=== PATIENT | male | born 1955 | race Caucasian/White ===

== ENCOUNTER 2021-01-13 15:05 | Outpatient (REF) | payer BC, SELFPAY ==
[2021-01-13 22:14] LABS: ALT 33 U/L (16-63); AST 20 U/L (15-37); Albumin 4.2 g/dL (3.4-5.0); Alkaline Phosphatase 70 U/L (46-116); Anion Gap 10.9 mmol/L (3-11); BUN 21 mg/dL (7-18); Bilirubin, Total 0.6 mg/dL (0.2-1.0); CO2 26.1 mmol/L (21.0-32.0); CREATININE 0.9 mg/dL (0.70-1.30); Calcium 8.8 mg/dL (8.5-10.1); Calculated LDL 140 mg/dL (<100); Chloride 103 mmol/L (98-107); Cholesterol 204 mg/dL (<200); Glucose 79 mg/dL (74-106); HDL Cholesterol 40 mg/dL (40-60); Potassium 3.8 mmol/L (3.5-5.1); Sodium 140 mmol/L (136-145); Total Protein 7.6 g/dL (6.4-8.2); Triglyceride 120 mg/dL (<150)
== END 2021-01-13 15:06 | disposition home or self-care (01) ==
LOC: NCHCN 15:05
PROVIDERS: PCP Family Medicine; Visit Provider Family Medicine
DX: Z00.00 Encounter for general adult medical examination without abnormal findings (principal); R03.0 Elevated blood-pressure reading, without diagnosis of hypertension; Z13.1 Encounter for screening for diabetes mellitus; Z13.220 Encounter for screening for lipoid disorders
CPT/HCPCS: 80053; 80061; 83036

== ENCOUNTER → 2023-11-23 08:12 | Outpatient (BNVA) | payer MEDICARE, SELFPAY | PROVIDERS: PCP Family Medicine; Referring Provider Family Medicine; Visit Provider Physical Therapy Assistant | DX: Z12.11 Encounter for screening for malignant neoplasm of colon (principal); Z86.010 Personal history of colon polyps ==

== ENCOUNTER 2024-01-26 06:23 | Day surgery (SDC) | payer MEDICARE, SELFPAY ==
--- NOTE | 2024-01-25 16:10 | PDOC.DSDIS_ITS ---
Date of service: 01/26/24 Time of Service: 08:45 Discharge Plan Disposition Patient Disposition: Home Condition: Good Discharge Details Attending Provider: Lola Berumen Primary Care Provider: Karmen Giraldo Home Meds and New Rx's Prescriptions: No Action bisacodyl [Dulcolax (bisacodyl)] 5 mg tablet,delayed release (DR/EC) 5 mg PO ONCE Qty: 4 0RF Rx Instructions: Take per colonoscopy instructions provided by ordering providers office polyethylene glycol 3350 17 gram/dose powder 17 g PO ONCE Qty: 238 0RF Rx Instructions: Take per colonoscopy instructions provided by ordering providers office Discharge Instructions Additional Instructions: DSU Colonoscopy Post- Op Instructions Instructions for Everyone who is given Anesthesia: For your safety, please do the following for the next twenty-four (24) hours: *Do Not operate a motor vehicle (car, truck, motorcycle, etc.) *Do Not drink alcoholic beverages or use any recreational drugs for the first 24 hours or while taking pain medications. The medications in your body may have a reaction that can be dangerous. *Do Not make any important decisions or sign any important papers. Findings: Multiple polyps Follow up: My office will send a letter in 2 to 3 weeks time with the results of the polyps and when we want to repeat the colonoscopy. Most likely 3 to 5 years time. You have severe sleep apnea and need to get a sleep study done 1. No lifting over 20 pounds or strenuous activity for the first 24 hours after your procedure. After 24 hours there are no restrictions on your activity but you may feel fatigued for a few days. 2. After you arrive home you may have a light meal and return to your normal diet as you can tolerate it without feeling sick to your stomach. 3. You may have a bloated, gaseous feeling in your belly (abdomen) after a colonoscopy. Passing gas and belching will help. Walking or lying down on your left side with your knees flexed may relieve the discomfort. Call the office at [phone] (Office) or [phone] (Hospital) right away if you notice any of the following: a.Vomiting of blood or ?coffee ground stools?. b.Rectal bleeding 1Tbsp, blood clots or continuous bleeding. c.Severe belly (abdominal) pain. d.A hard distended belly (abdomen) and an inability to pass gas. 4. Please don?t expect to have a normal BM (bowel movement) for 2-3 days after your procedure. 5. If there are questions regarding the findings of your procedure, please contact your doctor 6. If you are unable to contact your doctor with a problem, contact the hospital at [phone]. 7. Continue all your regular medications unless directed otherwise. I understand the above instructions and have no questions. Signature of Patient or Adult Escort Name of Responsible Adult Escort Signature of Nurse Date/Time Activity:: see above Diet:: see above Discharge Orders Discharge Orders: Discharge Order (Routine); Ordered 01/26/24 Ordered By: Lola Berumen DS: Diagnosis Discharge Diagnosis (1) Tubular adenoma of colon: Asessment and Plan: The patient is seen and examined after their colonoscopy.? The patient has been able to pass gas.? They are not having abdominal pain.? They have been able to tolerate liquids and a snack.? They do not have any nausea or vomiting.? They are not having any chest pain or shortness of breath.??? They are not having any rectal bleeding. Their vital signs have been stable-see nursing notes. We discussed findings during their colonoscopy, and any biopsies that were done/polyps that were removed. The patient will be sent a letter with any biopsy results, and when to repeat the colonoscopy.-see discharge instructions. Patient was given explicit instructions to follow-up regarding colonoscopy-refer to discharge instructions.? We reviewed resumption of medications. Patient verbalized understanding and discharged in stable and satisfactory condition- See nursing notes.
--- NOTE | 2024-01-25 16:11 | W.PM.HP.N ---
Date of service: 01/26/24 Time of Service: 07:29 Assessment and Plan Assessment and plan (1) Tubular adenoma of colon: Assessment and plan: Plan: Colonoscopy w/ general & natural airway. The?patient will be scheduled by my office. The pt understands that they need to do a bowel prep and the importance of hydration during this.? The patient understands there is a theoretical risk of renal failure.? For healthy patients we use Gatorade/Miralax Prep.? ?For anyone with renal concerns- GoLytely will be used. Plavix and coumadin will need to be held except in unusual circumstances. ? Patients in A. Fib do not need to be bridged with Lovenox or on CVA prophylaxis.? A baby ASA can be continued but full dose ASA needs to be stopped for 10 days prior to the procedure. .? Informed consent is obtained for the procedural (explained in simple layman's terms that?the pt and/or family could understand) explaining risks vs benefits and alternatives to the procedure and consequences if we do not do the procedure and need/rational for the procedure. Risks include but are not limited to: bleeding, infection, perforation of colon.? This would necessitate emergency surgery to repair the damage w/ possible ostomy; and other associated complications w/ the required surgery. ? Also complications of anesthesia including aspiration, NE/CVA/, inability to complete the procedure. I discussed with the?patient would they could expect during the procedure, post procedure and recovery time and risks.? The patient understands that they need to have a ride home after the procedure.? The patient was given all this information in writing and expressed understanding. If there are any questions or concerns please feel free to contact our office.? Generally Colonoscopy does not require antibiotics prophylaxis, History of Present Illness Narrative: Patient is here today for colonoscopy for adenomatous polyp.??? They completed a bowel prep with just a clear yellow residual effluent.? They not having any chest pain or shortness of breath, currently.? They are not experiencing any fever or chills.? They deny any productive cough or upper respiratory tract infection signs or symptoms.? They are not having abdominal pain, or nausea and vomiting.? They have not had any changes in medications, past medical history or past surgical history since previously being seen in the office. They have not had any accidents or have been in the ER since the clinic pre-operative evaluation. ??I reviewed the procedure with the patient today, including risks and benefits of the procedure, and what they could expect at home for recovery.? All questions are answered to the patient?s satisfaction today, and they are stable to proceed with the proposed procedure. Clinic visit Assessment & Plan (1) Encounter for screening colonoscopy: The patient is here for Colonoscopy pre-op. His last screening was in 2017 , which was remarkable for tubular adenomatous polyp. He denies a family history of colon cancer. He has not had any bowel habit changes. -Discussed colonoscopy bowel prep as well as the procedure. Discussed possible complications of the procedure to include bleeding, pain, perforation, missed small lesion/polyp, sore throat, aspiration and adverse reaction to the medications. Questions were answered to patient?s satisfaction. No guarantees were implied or given. Anesthesia: general (without airway) Previous surgical intolerances: None Previous surgical complications: None Pulmonary risk factors: None PFT's: None Planned procedure: Yes Sleep apnea risks: No Can climb one flight of stairs (12-13 steps) in less than 30 seconds without stopping and without symptoms: Yes The surgery proposed for this patient is: Low risk Active cardiac conditions: None ECHO: None Stress Test: None Active risk factors: None ASA (acetylsalicylic acid):No Beta blockers: No Anti-coagulation: N/A Medications to be held: N/A PSHx hernia anesthesia- no problems P// Colonoscopy under sedation New HPI 67 y/o male with history of colonic polyps presents for colonoscopy screening pre-op. His last screening was in 2017 , which was remarkable for tubular adenomatous polyp. He denies a family history of colon cancer. He denies any changes in bowel habits including bloody or black tarry stools, abdominal pain, diarrhea or constipation. He denies constitutional symptoms. He denies chest pain, palpitations, dyspnea or dyspnea with exertion. He denies prior history or family history of adverse reactions or complications with anesthesia. The patient denies any history of stroke, NE, seizures, bleeding or clotting disorders. He denies having any implanted metal in his body. Review of Systems All systems reviewed & are unremarkable except as noted in HPI and below PFSH Medical History Tubular adenoma of colon Surgical History Repair of inguinal hernia RIGHT INGUINAL Colonoscopy - [facility] (07/28/17) Family History Father Lung cancer Mother , AFTER A FALL CAUSED BY BRAIN ISSUE No problems noted. Social History Smoking/Tobacco Use Status: Never Second Hand Exposure: No Smoking risk assessment performed?: Yes Alcohol Intake: never Drug use: Never Substance use type: does not use Housing: house Communication Needs: None Do you feel safe at home: Yes Do you feel safe in your relationship?: Yes Meds Allergies and Home Medications Allergies Allergy/AdvReac Type Severity Reaction Status Date / Time No Known Allergies Allergy Verified 01/26/24 06:32 Home Medications Medication Instructions Recorded Confirmed Type bisacodyl 5 mg tablet,delayed 5 mg PO ONCE #4 tabs 11/23/23 01/26/24 Rx release (Dulcolax (bisacodyl)) polyethylene glycol 3350 17 17 g PO ONCE #238 grams 11/23/23 01/26/24 Rx gram/dose oral powder Exam Narrative Exam Narrative: PHYSICAL EXAM GENERAL APPEARANCE: Alert, healthy appearance, oriented, x 3,? in no acute distress HYDRATION: Well hydrated HEAD, EYES, EARS, NECK, THROAT: Head is normocephalic, pupils equal, round, reactive to light and accommodation, ocular movement intact, sclera clear and no jaundice. ?Dentition intact. LUNGS: normal respiration/normal chest excursion. ?Clear to auscultation bilaterally. ?No wheeze. ?HEART: Regular rate and rhythm. no murmurs ABDOMEN: soft and non-tender to palpation.? Normal bowel sounds.? Anemia profile No Data to Display Basic Metabolic Sodium 140 mmol/L (136-145) 01/13/21 Potassium 3.8 mmol/L (3.5-5.1) 01/13/21 Chloride 103 mmol/L (98-107) 01/13/21 Carbon Dioxide 26.1 mmol/L (21.0-32.0) 01/13/21 BUN 21 mg/dL (7-18) H 01/13/21 Creatinine 0.9 mg/dL (0.70-1.30) 01/13/21 Estimated GFR/1.73 m2 >= 60.00 (mL/min/1.73m2) 01/13/21 Glucose 79 mg/dL (74-106) 01/13/21 CBC No Data to Display Comprehensive Metabolic Panel Sodium 140 mmol/L (136-145) 01/13/21 12:40 Potassium 3.8 mmol/L (3.5-5.1) 01/13/21 12:40 Chloride 103 mmol/L (98-107) 01/13/21 12:40 Carbon Dioxide 26.1 mmol/L (21.0-32.0) 01/13/21 12:40 BUN 21 mg/dL (7-18) H 01/13/21 12:40 Creatinine 0.9 mg/dL (0.70-1.30) 01/13/21 12:40 Estimated GFR/1.73 m2 >= 60.00 (mL/min/1.73m2) 01/13/21 12:40 Glucose 79 mg/dL (74-106) 01/13/21 12:40 Calcium 8.8 mg/dL (8.5-10.1) 01/13/21 12:40 Total Bilirubin 0.6 mg/dL (0.2-1.0) 01/13/21 12:40 ALT 33 U/L (16-63) 01/13/21 12:40 AST 20 U/L (15-37) 01/13/21 12:40 Alkaline Phosphatase 70 U/L (46-116) 01/13/21 12:40 Total Protein 7.6 g/dL (6.4-8.2) 01/13/21 12:40 Albumin 4.2 g/dL (3.4-5.0) 01/13/21 12:40 Diabetes results Hemoglobin A1c 5.0 % (<5.7) 01/13/21 Glucose 79 mg/dL (74-106) 01/13/21 Total Cholesterol 204 mg/dL (<200) H 01/13/21 LDL Cholesterol, Calc 140 mg/dL (<100) H 01/13/21 LDL Cholesterol Direct 145 mg/dL (<100) H 11/23/17 HDL Cholesterol 40 mg/dL (40-60) 01/13/21 Triglycerides 120 mg/dL (<150) 01/13/21 BUN 21 mg/dL (7-18) H 01/13/21 Creatinine 0.9 mg/dL (0.70-1.30) 01/13/21 Estimated GFR/1.73 m2 >= 60.00 (mL/min/1.73m2) 01/13/21 Sodium 140 mmol/L (136-145) 01/13/21 Potassium 3.8 mmol/L (3.5-5.1) 01/13/21 Chloride 103 mmol/L (98-107) 01/13/21 Carbon Dioxide 26.1 mmol/L (21.0-32.0) 01/13/21 Calcium 8.8 mg/dL (8.5-10.1) 01/13/21 AST 20 U/L (15-37) 01/13/21 ALT 33 U/L (16-63) 01/13/21 Total Protein 7.6 g/dL (6.4-8.2) 01/13/21 Albumin 4.2 g/dL (3.4-5.0) 01/13/21 Lipid profile Total Cholesterol 204 mg/dL (<200) H 01/13/21 HDL Cholesterol 40 mg/dL (40-60) 01/13/21 LDL Cholesterol, Calc 140 mg/dL (<100) H 01/13/21 LDL Cholesterol Direct 145 mg/dL (<100) H 11/23/17 Triglycerides 120 mg/dL (<150) 01/13/21 Stool tests (SJP) No Data to Display Time Spent Time spent with Patient: <40 minutes Time was spent: preparing to see the patient(eg.review tests), obtaining and/or reviewing separately otained hiistory, ordering medications,tests, procedures, referring, communicating with other health housekeeper child care, indepentently interpreting results, counseling the patient and care coordination
--- NOTE | 2024-01-25 19:13 | W.COLOREPORT ---
Date of service: 01/26/24 Time of Service: 07:35 Colonoscopy Report Date of procedure: 01/26/24 Pre-op diagnosis general: adenomtous polyps Post-op diagnosis procedure note: same Surgeon: Lola Berumen Anesthesia Type: General:No Airway Estimated blood loss (mL): 3 Pathology: other Complications: None Disposition: same day Prep: Miralax/Dulcolax Retraction Time: 30 Procedure Description: After informed consent was obtained the patient was taken to the procedure room and placed in a left decubitous position. Monitors were applied and a time out was done. The patients name, date of , procedure, allergies to medications and metal in their body was reviewed. The patient was then sedated. Once sedated and comfortable a rectal exam was done. External exam: External hemorrhoid at 6 o'clock position internal exam revealed a normal sphincter tone and no palpable masses. The prostate is enlarged. The scope was then introduced and retrofelexed. No internal hemorrhoids were identified. The scope was then advanced to the cecum without difficulty. The TI and appendiceal orifice were identified. The scope was then slowly retracted over 30 minutes back into the rectum. Multiple polyps are removed today. He had 2 polyps at 90 cm. 1 is a flat 0.5 cm polyp that is removed with a cold biting forcep. The second is a 0.75 cm flat polyp that is removed with a cold snare. He had 1 polyp at 70 cm that is removed with a cold biting forcep. There is 0.5 cm and flat. He had 2 polyps at 30 cm. 1 is a flat 0.75 cm polyp and is removed with a cold snare. The other is a 1 cm pedunculated polyp that is removed with a cold snare. He has one polyps at 20 cm. It is 0.75 cm and pedunculated and is removed with a cold snare. There is a flat 0.5 cm polyp in the rectum that is removed with a cold snare. All specimens are retrieved and no bleeding is noted. A clip is placed across the defect at 30 cm where the polyp is removed. The area in the rectum was cauterized because of bleeding. The bleeding stops with the cauterization. There are no AVMs or diverticula visualized today. The scope was removed and the patient was woken up and taken back to Same day surgery in stable condition. The patient tolerated the procedure well and there were no immediate complications. Follow up: The patient should follow up in 3-5years, path pending unless they develop changes in bowel habits or other new gastrointestinal complaints. [place] Bowel Prep [place] Bowel Prep Right Colon: 3 Left Colon: 3 Transverse Colon: 3 Total Score: 9
[2024-01-26 06:15] VITALS: BP 145/99; PULSE 89; RESP 18; TEMP 36.6; O2SAT 97
[2024-01-26] MEDS: Lactated Ringers 1,000 ML 80 ML IV (06:46)
--- NOTE | 2024-01-26 06:57 | W.ANESPRE ---
General Info Date of Service Date Performed: 01/26/24 Height: 5 ft 11.5 in Weight: 86.2 kg Body Mass Index (BMI): 26.1 Surgical Procedure: Operation Date: 01/26/24 07:35 Proposed Procedure Side Surgeon p Colonoscopy Lola Berumen DO Meds Allergies and Home Medications Allergies Allergy/AdvReac Type Severity Reaction Status Date / Time No Known Allergies Allergy Verified 01/26/24 06:32 Home Medication Medication Instructions Recorded bisacodyl 5 mg tablet,delayed 5 mg PO ONCE #4 tabs 11/23/23 release (Dulcolax (bisacodyl)) polyethylene glycol 3350 17 17 g PO ONCE #238 grams 11/23/23 gram/dose oral powder Current Visit Medications: Current Medications Generic Name Dose Route Start Last Admin Trade Name Freq PRN Reason Stop Dose Admin Hyoscyamine Sulfate 0.125 mg 01/25/24 15:55 Hyoscyamine 0.125 Mg Sl/Oral/Chew SL 02/24/24 15:54 DIRECTED PRN Ringer's Solution 1,000 mls @ 80 mls/hr 01/26/24 06:00 01/26/24 06:46 IV 02/24/24 23:59 80 mls/hr INFUSION CHIP Administration IV Miscellaneous Supplies 1 each 01/26/24 06:00 Iv Access IV 02/24/24 23:59 DIRECTED CHIP Ondansetron HCl 4 mg 01/25/24 15:55 Ondansetron 4 Mg/2 Ml Vial IVP 02/24/24 15:54 Q4H PRN PRN Nausea / Vomiting Sodium Chloride 0 ml 01/26/24 06:00 Normal Saline Flush 10 Ml Syr IV 02/24/24 23:59 PRN PRN Sodium Chloride 0 ml 01/26/24 06:00 Normal Saline 10 Ml Vial IJ 02/24/24 23:59 DIRECTED PRN Sterile Water 0 ml 01/26/24 06:00 Water,Injection,Sterile 10 Ml Vial IJ 02/24/24 23:59 DIRECTED PRN PFSH Medical History Medical History Tubular adenoma of colon Surgical History Surgical History Repair of inguinal hernia RIGHT INGUINAL Colonoscopy - [facility] (07/28/17) Tobacco Smoking/Tobacco Use Status: Never Second hand exposure: No Alcohol Alcohol Intake: never Substance Use Substance use: Never Substance use type: does not use Vital Signs and Lab Results Vital Signs Most Recent Vital Signs in EMR: Most Recent Vital Signs Temp Pulse Resp BP Pulse Ox 36.6 C 89 18 145/99 H 97 01/26/24 06:15 01/26/24 06:15 01/26/24 06:15 01/26/24 06:15 01/26/24 06:15 Lab Results Blood Type / Crossmatch: No Data to Display Complete Blood Count: No Data to Display Complete Metabolic Panel: No Data to Display Liver Function Panel: No Data to Display Coagulation Panel: No Data to Display Cardiac Panel: No Data to Display Arterial Blood Gas: No Data to Display Venous Blood Gas: No Data to Display Pancreas Panel: No Data to Display Thyroid Panel: No Data to Display Infectious Disease: No Data to Display Blood Cultures: No Data to Display Toxicology Panel: No Data to Display Anesthesia Assessment and Plan Anesthesia History Personal History: No History of Anesthesia Complications Family History: No Family History of Anesthesia Complications Exercise Tolerance Exercise Tolerance: Metabolic Equivalents>4 Pertinent Negatives Pertinent Negatives: No Symptoms of GERD Cardiac & Pulmonary Exam Cardiac Exam: Normal S1/S2 Heart Sounds Pulmonary Exam: Clear Bilateral Breath Sounds Implantable Cardiac Device Does patient have a Pacemaker or an ICD?: No Airway Exam Known Difficult Airway: No Mallampati Class: 2 Mouth Opening: Normal (> 3cm) Thyromental Distance: Greater than 3 cm Neck Range of Motion: Full ROM Neck Circumference: Normal Teeth Condition: Normal Dentition ASA Classification ASA Score: ASA 2 Emergency Case?: No NPO Status NPO Status: NPO Clears >2 hours, Solids >8 hours Anesthesia Plan Resuscitation Status: Full Code Anesthesia Technique: General Anesthesia Airway Planned: Natural Airway Monitors Used: Standard Monitors
[2024-01-26 06:58] VITALS: BMI 26.1
--- NOTE | 2024-01-26 07:44 | BOWEL_PTH ---
PATIENT: Baron Tomas LOC: [facility] U#:[id number] AGE/SX: 68/M ROOM: RE01/26/[address]: Lola Berumen : 1955 BED: DIS: 01/26/2024 SPEC #: [id number] RECD: 01/26/24 12:00 STATUS: ALICIA REAdin #: [id number] BERNARD: 01/26/24 07:[address]: Lola Berumen DEPT: Surgical Specimen RECD BY: Shalonda Lance ENTERED: 01/26/24 12:03 SP TYPE: Bowel OTHR DR: Karmen Giraldo Tissues: 1 - BIOPSY BOWEL 2 - BIOPSY BOWEL 3 - BIOPSY BOWEL 4 - BIOPSY BOWEL 5 - BIOPSY BOWEL Procedures: GROSS AND MICRO LEVEL 4 Comments: [id number]
[2024-01-26 08:36] VITALS: BP 123/75; PULSE 90; RESP 20; TEMP 36.5; O2SAT 94
--- NOTE | 2024-01-26 08:46 | W.ANESPOSTOP ---
Postoperative Evaluation Date, Time and Location Date Performed: 01/26/24 Time Performed: 08:46 Patient Location: Day Surgery Unit Vital Signs Most Recent Imported Vital Signs: Most Recent Vital Signs Temp Pulse Resp BP Pulse Ox 36.5 C 90 20 123/75 94 01/26/24 08:36 01/26/24 08:36 01/26/24 08:36 01/26/24 08:36 01/26/24 08:36 Assessment Mental Status: Awake (Alert & Oriented to Patient Baseline) Airway and Respiratory Function: Patent airway with normal (patient baseline) respiratory exam Cardiovascular Function: Hemodynamically Stable Hydration Status: Adequately Hydrated Nausea & Vomiting: No Nausea or Vomiting Pain: Pt. Denies Any Pain Peripheral Nerve Block: Patient did not receive a nerve block
[2024-01-26 09:12] VITALS: BP 132/95; PULSE 77; RESP 18; TEMP 36.6; O2SAT 98
== END 2024-01-26 06:24 | disposition home or self-care (01) ==
PROVIDERS: PCP Family Medicine; Visit Provider Surgery
PROC: 0DJD8ZZ Inspection of Lower Intestinal Tract, Via Natural or Artificial Opening Endoscopic (ICD-10-PCS; CPT 45378; principal; 2024-01-26 07:30)
DX: Z12.11 Encounter for screening for malignant neoplasm of colon (principal); D12.8 Benign neoplasm of rectum; Z86.010 Personal history of colon polyps; D12.5 Benign neoplasm of sigmoid colon; D12.4 Benign neoplasm of descending colon; D12.3 Benign neoplasm of transverse colon
CPT/HCPCS: 45385; 45380; 88305; J2001; J2704

== ENCOUNTER 2025-03-03 10:21 | Outpatient (REF) | payer MEDICARE, SELFPAY ==
[2025-03-03 14:34] LABS: Abs Immature Grans 0.04 10^3/uL (0.0-0.06); Absolute Basophil Count 0.04 10^3/uL (0.0-0.2); Absolute Eosinophil Count 0.23 10^3/uL (0.0-0.7); Absolute Lymphocyte Count 0.86 10^3/uL (1.2-3.4); Absolute Monocyte Count 0.64 10^3/uL (0.1-0.8); Absolute Neutrophil Count 7.97 10^3/uL (1.2-6.7); Basophils % 0.4 %; Eosinophils % 2.4 %; HGB 15.5 g/dL (13.5-17.5); Immature Grans % 0.4 %; Lymphocytes % 8.8 %; MCHC 35.2 % (32.0-36.0); MCV 91 fL (80-95); MPV 11.2 fL (8.0-11.0); Monocytes % 6.5 %; Neutrophils % 81.5 %; Platelet Count 214 10^3/uL (130-400); RBC 4.84 10^6/uL (4.36-5.78); RDW 12.4 % (11.8-14.1); WBC 9.78 10^3/uL (4.4-10.8)
[2025-03-03 15:19] LABS: ALT 48 U/L (16-63); AST 19 U/L (15-37); Albumin 3.8 g/dL (3.4-5.0); Alkaline Phosphatase 82 U/L (46-116); Anion Gap 11.3 mmol/L (3-11); BUN 16 mg/dL (7-18); Bilirubin, Total 0.9 mg/dL (0.2-1.0); CO2 25.7 mmol/L (21.0-32.0); CREATININE 0.8 mg/dL (0.70-1.30); Calcium 9.2 mg/dL (8.5-10.1); Calculated LDL 87 mg/dL (<100); Chloride 101 mmol/L (98-107); Cholesterol 145 mg/dL (<200); Glucose 102 mg/dL (74-106); HDL Cholesterol 43 mg/dL (>or=40); Potassium 4.1 mmol/L (3.5-5.1); Sodium 138 mmol/L (136-145); TSH (W/Ref FT4) 2.31 uIU/mL (0.36-3.74); Triglyceride 75 mg/dL (<150)
== END 2025-03-03 10:22 | disposition home or self-care (01) ==
LOC: NCHCN 10:21
PROVIDERS: PCP Family Medicine; Visit Provider Family Medicine
DX: R63.4 Abnormal weight loss (principal)
CPT/HCPCS: 80053; 80061; 84443; 85025

== ENCOUNTER 2025-03-26 00:46 | Outpatient (CLI) | payer MEDICARE, SELFPAY ==
--- NOTE | 2025-03-26 | DI.CT_ITS ---
Exam(s) CT CHEST/ABD/PEL W EXAM: CT CHEST/ABD/PEL W CLINICAL HISTORY: R63.4 ABN Weight loss, unintentional. TECHNIQUE: Imaging Protocol: Axial computed tomography images with coronal and sagittal reformatted images were created and reviewed. Computer aided detection (CAD) was utilized. CONTRAST MATERIAL: Intravenous: Omnipaque 350 Contrast volume:100 ml Oral: yes / COMPARISON: No exams were available for comparison FINDINGS: CHEST: Pulmonary parenchyma: No consolidation. 4 millimeter nodule in the anterior left upper lobe, nonspeci fic. Tracheobronchial tree: No bronchiectasis. No mucous plugging.No bronchial wall thickening. Pleura: No effusion or pneumothorax. Mediastinum: Within normal limits. Pulmonary arteries: No visible emboli. Cardiovascular: No pericardial effusion. Thoracic aorta non-dilated. Bones: Unremarkable for age. No lytic or blastic lesions.No compression fractures. Soft tissues: Unremarkable. ABDOMEN and PELVIS: Liver: Normal density. Ill-defined mass measuring left foot a 2.2 cm in the left lobe of the liver. A cyst is also noted in the left lobe. There are 2 small cysts in the right lobe. Gallbladder and biliary tract: Cholelithiasis. No wall thickening. No biliary dilatation. Pancreas: There is an ill-defined low-density pancreatic mass located in the body and tail, measuring approximately 5.5 by 3.5 by 3 cm. There are invasive features, with extension into the fat surroundi ng the celiac artery and branches. There is attenuation of the splenic artery and obliteration of the splenic vein. There are vessels around the stomach. Spleen: Normal. Kidneys: Normal size, contour and axis. There is a 10 millimeter stone noted in the distal right uret er causing moderate hydronephrosis. There is no significant delay in nephrogram. There is a [address] stone at the lower pole of the right kidney. No suspicious masses seen. Adrenal glands: No masses seen. Aorta: Abdominal portion non-dilated. Lymph nodes: Several small mesenteric lymph nodes are noted, beneath the level of the pancreas measur ing on the order of 5-10 millimeters. Soft tissues: Unremarkable. Bladder: Unremarkable. Bowel: No obstruction or bowel wall thickening. Peritoneal cavity: There is a small amount of fluid in the low pelvis. No focal collection. No mesen teric inflammatory response. No free air. Bones: Unremarkable for age. Reproductive organs: Slight prostate enlargement. Symmetric prominence of the seminal vesicles. 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 Metastatic lesion to the left lobe of the liver. Mildly enlarged mesenteric lymph nodes. Nonspecific 4 millimeter nodule in left upper lobe. 10 millimeter calculus in the distal right ureter causing moderate hydronephrosis. Unexpected findings RADIATION DOSE DELIVERED: 345.31mGy.cm Total DLP DATA REPOSITORY: All CT scans at this facility are submitted to the National Radiology Data Registry (NRDR) Dose Index Registry (DIR) with the [employer] (A[employer]). RADIATION OPTIMIZATION: All CT scans at this facility use at least one of these dose optimization te chniques: automated exposure control; mA and/or kV adjustment per patient size (includes targeted exa ms where dose is matched to clinical indication); or iterative reconstruction.
[2025-03-26] MEDS: Barium Sulfate 2% W/V-Berry Smoothie 450 ML BTL PO ×2 (07:49→07:50)
[2025-03-26] MEDS: Normal Saline - Diluent 50 ML VIAL IJ (09:25)
[2025-03-26] MEDS: Omnipaque 350 MG/ML 100 ML BTL IJ (09:26)
== END 2025-03-26 01:06 ==
PROVIDERS: PCP Family Medicine; Visit Provider Family Medicine
DX: K86.89 Other specified diseases of pancreas (principal); R91.8 Other nonspecific abnormal finding of lung field; C78.7 Secondary malignant neoplasm of liver and intrahepatic bile duct
CPT/HCPCS: 74177; 71260; J3490

== ENCOUNTER 2025-05-24 00:04 | Outpatient (RCR) | payer MEDICARE, SELFPAY ==
[2025-05-10 13:34] VITALS: BP 132/82; PULSE 86; RESP 16; TEMP 36.2; O2SAT 98
[2025-05-10] MEDS: Normal Saline Flush 10 ML SYR IVP (13:35)
[2025-05-22] MEDS: Normal Saline Flush 10 ML SYR IVP (09:52)
[2025-05-22 10:15] LABS: Abs Immature Grans 0.02 10^3/uL (0.0-0.06); Absolute Basophil Count 0.04 10^3/uL (0.0-0.2); Absolute Eosinophil Count 0.48 10^3/uL (0.0-0.7); Absolute Lymphocyte Count 0.63 10^3/uL (1.2-3.4); Absolute Monocyte Count 0.47 10^3/uL (0.1-0.8); Absolute Neutrophil Count 2.91 10^3/uL (1.2-6.7); Basophils % 0.9 %; Eosinophils % 10.5 %; HCT 35.8 % (40.0-50.0); HGB 12.7 g/dL (13.5-17.5); Immature Grans % 0.4 %; Lymphocytes % 13.8 %; MCHC 35.5 % (32.0-36.0); MCV 90 fL (80-95); MPV 9.9 fL (8.0-11.0); Monocytes % 10.3 %; Neutrophils % 64.1 %; Platelet Count 172 10^3/uL (130-400); RBC 3.97 10^6/uL (4.36-5.78); RDW 13.2 % (11.8-14.1); WBC 4.55 10^3/uL (4.4-10.8)
[2025-05-22 10:30] LABS: ALT 46 U/L (16-63); AST 18 U/L (15-37); Albumin 3.1 g/dL (3.4-5.0); Alkaline Phosphatase 111 U/L (46-116); Anion Gap 7.5 mmol/L (3-11); BUN 13 mg/dL (7-18); Bilirubin, Total 0.5 mg/dL (0.2-1.0); CO2 26.5 mmol/L (21.0-32.0); CREATININE 0.6 mg/dL (0.70-1.30); Calcium 8.4 mg/dL (8.5-10.1); Chloride 102 mmol/L (98-107); Estimated GFR 105.15 (mL/min/1.73m2); Glucose 106 mg/dL (74-106); Potassium 3.5 mmol/L (3.5-5.1); Sodium 136 mmol/L (136-145); Total Protein 6.3 g/dL (6.4-8.2)
[2025-05-23 15:24] LABS: CA 19-9 43094 U/mL (<35)
[2025-05-24] MEDS: Normal Saline Flush 10 ML SYR IVP (14:26)
== END 2025-05-26 23:59 | disposition home or self-care (01) ==
LOC: INF 00:04
PROVIDERS: Nurse Practitioner Family; PCP Family Medicine; Visit Provider Internal Medicine Hematology & Oncology
DX: C25.9 Malignant neoplasm of pancreas, unspecified (principal); C79.9 Secondary malignant neoplasm of unspecified site; Z45.9 Encounter for adjustment and management of unspecified implanted device
CPT/HCPCS: 36591; 80053; 96523; 85025; 86301

== ENCOUNTER 2025-06-05 11:27 | Outpatient (RCR) | payer MEDICARE, SELFPAY ==
[2025-06-05 10:02] LABS: Abs Immature Grans 0.01 10^3/uL (0.0-0.06); HCT 36.9 % (40.0-50.0); HGB 12.8 g/dL (13.5-17.5); Immature Grans % 0.2 %; MCH 32.1 pg (27.0-33.0); MCHC 34.7 % (32.0-36.0); MCV 93 fL (80-95); MPV 9.9 fL (8.0-11.0); Platelet Count 179 10^3/uL (130-400); RBC 3.99 10^6/uL (4.36-5.78); RDW 14.6 % (11.8-14.1); RDW-SD 48.5 fL; WBC 4.95 10^3/uL (4.4-10.8)
[2025-06-05 10:18] LABS: ALT 43 U/L (16-63); AST 21 U/L (15-37); Albumin 3.1 g/dL (3.4-5.0); Alkaline Phosphatase 116 U/L (46-116); Anion Gap 8.4 mmol/L (3-11); BUN 15 mg/dL (7-18); Bilirubin, Total 0.3 mg/dL (0.2-1.0); CO2 25.6 mmol/L (21.0-32.0); Calcium 8.7 mg/dL (8.5-10.1); Chloride 103 mmol/L (98-107); Estimated GFR 105.15 (mL/min/1.73m2); Glucose 83 mg/dL (74-106); Potassium 4.0 mmol/L (3.5-5.1); Sodium 137 mmol/L (136-145); Total Protein 6.5 g/dL (6.4-8.2)
[2025-06-05] MEDS: Normal Saline Flush 10 ML SYR IVP (11:49)
[2025-06-06 11:37] LABS: CA 19-9 35161 U/mL (<35)
== END 2025-06-26 23:59 | disposition home or self-care (01) ==
LOC: INF 11:27
PROVIDERS: Nurse Practitioner Family; PCP Family Medicine; Visit Provider Internal Medicine Hematology & Oncology
DX: C25.9 Malignant neoplasm of pancreas, unspecified (principal); C79.9 Secondary malignant neoplasm of unspecified site
CPT/HCPCS: 80053; 85025; 86301

== ENCOUNTER 2025-06-19 02:05 | Outpatient (RCR) | payer MEDICARE, SELFPAY ==
[2025-06-19] MEDS: Normal Saline Flush 10 ML SYR IVP (09:20)
[2025-06-19 09:38] LABS: Abs Immature Grans 0.02 10^3/uL (0.0-0.06); HCT 37.2 % (40.0-50.0); HGB 12.8 g/dL (13.5-17.5); Immature Grans % 0.4 %; MCH 32.2 pg (27.0-33.0); MCHC 34.4 % (32.0-36.0); MCV 94 fL (80-95); MPV 10.0 fL (8.0-11.0); Platelet Count 163 10^3/uL (130-400); RBC 3.97 10^6/uL (4.36-5.78); RDW 15.8 % (11.8-14.1); RDW-SD 53.1 fL; WBC 5.04 10^3/uL (4.4-10.8)
[2025-06-19 09:58] LABS: ALT 44 U/L (16-63); AST 24 U/L (15-37); Albumin 3.3 g/dL (3.4-5.0); Alkaline Phosphatase 112 U/L (46-116); Anion Gap 6.8 mmol/L (3-11); BUN 17 mg/dL (7-18); Bilirubin, Total 0.5 mg/dL (0.2-1.0); CO2 26.2 mmol/L (21.0-32.0); Calcium 8.7 mg/dL (8.5-10.1); Chloride 105 mmol/L (98-107); Estimated GFR 100.37 (mL/min/1.73m2); Glucose 105 mg/dL (74-106); Potassium 3.9 mmol/L (3.5-5.1); Sodium 138 mmol/L (136-145); Total Protein 6.5 g/dL (6.4-8.2)
[2025-06-20 15:19] LABS: CA 19-9 24952 U/mL (<35)
== END 2025-06-26 23:59 | disposition home or self-care (01) ==
LOC: INF 02:05
PROVIDERS: PCP Family Medicine; Visit Provider Internal Medicine Hematology & Oncology
DX: C79.9 Secondary malignant neoplasm of unspecified site (principal); C25.9 Malignant neoplasm of pancreas, unspecified; Z45.2 Encounter for adjustment and management of vascular access device
CPT/HCPCS: 36591; 80053; 85025; 86301

== ENCOUNTER 2025-06-21 00:10 | Outpatient (RCR) | payer MEDICARE, SELFPAY ==
[2025-06-07 14:37] VITALS: BP 131/93; PULSE 101; RESP 16; TEMP 36.8; O2SAT 98
[2025-06-07] MEDS: Normal Saline Flush 10 ML SYR IVP (14:49)
[2025-06-21 14:21] VITALS: BP 151/90; PULSE 85; RESP 18; TEMP 36.7; O2SAT 99
[2025-06-21] MEDS: Normal Saline Flush 10 ML SYR IVP (14:23)
== END 2025-06-26 23:59 | disposition home or self-care (01) ==
LOC: INF 00:10
PROVIDERS: PCP Family Medicine; Visit Provider Internal Medicine Hematology & Oncology
DX: C79.9 Secondary malignant neoplasm of unspecified site (principal); C25.9 Malignant neoplasm of pancreas, unspecified; Z45.2 Encounter for adjustment and management of vascular access device
CPT/HCPCS: 96523

== ENCOUNTER 2025-06-27 01:41 | Outpatient (CLI) | payer MEDICARE, SELFPAY ==
--- NOTE | 2025-06-27 | DI.CT_ITS ---
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 TECHNIQUE: Imaging Protocol: Axial computed tomography images with coronal and sagittal reformatted images were created and reviewed CONTRAST MATERIAL: Intravenous: Omnipaque 350 Contrast volume:100 ml Oral: Yes. Oral contrast was also administered for bowel opacification COMPARISON: CT CT CHEST/ABD/PEL W from 03/26/2025 FINDINGS: CHEST: LUNGS: No new lung nodules. A small 2-3 mm sub apical nodule in the left upper lobe is unchanged from previous as is a 2 millimeter nodule in the lateral aspect of the left upper lobe. There are no infiltrates nor pleural effusions.. However, incidentally noted are significant intraluminal filling defects in right lower lobe pulmonary arteries consistent with pulmonary emboli, not previously evident on images of CT scan 03/26/2025. There does not appear to be involvement of the right upper lobe. There is no similar findings in the opposite-left lung. MEDIASTINUM: There is no hilar nor mediastinal adenopathy. Visualized thyroid unremarkable. CARDIAC: Heart size is normal. There is no pericardial effusion.Diameter of the ascending thoracic aorta is enlarged, measuring 4 cm. No dissection. The diameter of the aortic arch and descending thoracic aorta are slightly enlarged, measuring 3 cm and 2.9 cm respectively. There is no evidence of aortic dissection. There is no shift of the interventricular septum. OSSEOUS: No significant osseous lesions.No fractures.. ABDOMEN: There is no ascites in the upper abdomen. There is a very small amount of ascites in the pelvis.. LIVER: Small benign cyst in the right hepatic lobe are again noted well as in the anterior and medial aspects of the left hepatic lobe. However, there is also abnormal density in the left lobe of the liver previously documented and possibly representing metastatic disease or primary neoplastic mass; less likely an hemangioma. GALLBLADDER/BILIARY: Cholelithiasis again noted. The gallbladder does not appear edematous and there is no pericholecystic fluid nor gallbladder distension. The CBD is not dilated. PANCREAS: Previously described mass in the body and tail the pancreas is again noted,, somewhat more similar in density to the remainder of the group gland on today's study and again exhibiting local invasion vascular encasement around the celiac and SMA arteries and with local adenopathy. 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 SPLEEN: Spleen size is upper normal. Splenic vein is occluded. Splenic vein confluence remains patent ADRENALS: There are no significant adrenal masses. KIDNEYS: There are nonobstructive calculi again noted in the lower pole calices of the right kidney.. Is also slightly larger calculus in lower pole calyx of the opposite-left kidney noted measuring 5 mm. There is no hydronephrosis. No hydroureter. No solid renal masses. No cysts. ABDOMINAL AORTA: Abdominal aorta is not enlarged. Again noted is some encasement of the celiac artery and superior mesenteric artery by the neoplastic appearing tissue from the pancreas. These vessels, however, are not occluded at this time LYMPH NODES: Some retroperitoneal adenopathy again noted. Similar to previous. ABDOMINAL WALL: No evidence of significant anterior abdominal wall nor inguinal hernia. GI: There is no evidence of bowel obstruction. PELVIS: LYMPH NODES: There is no intrapelvic nor inguinal adenopathy. GI: No evidence of appendicitis.No evidence of sigmoid diverticulitis. URINARY BLADDER: No calculi nor masses evident REPRODUCTIVE: Prostate size upper normal. OSSEOUS: No significant osseous lesions. Fractures. IMPRESSION: 1. There are intraluminal filling defects in right lower lobe pulmonary arteries consistent with pulmonary emboli, not previously present. 2. No new metastatic nodules in the lung cab[place]. No intrathoracic adenopathy. 3. Enlarged thoracic aorta with ascending thoracic diameter of 4 cm. There is no dissection. 4. In the abdomen the previously described malignant-appearing pancreatic mass involving the body and tail the pancreas appears somewhat similar in size and with regional lymphadenopathy again noted as well as encasement of the celiac and superior mesenteric arteries (as well as encasement/occlusion of the splenic vein). The portal vein confluence is still patent. 5. Findings in the liver are unchanged with a few benign cysts and a more concerning looking lesion in the left lobe of the liver again noted which is suspicious for metastatic disease. 6. Bilateral nonobstructive nephrolithiasis is again noted. Also cholelithiasis without evidence of acute cholecystitis nor dilatation of the biliary tree. There is a small amount of ascites now evident in the pelvis. RADIATION DOSE DELIVERED: 796.46mGy.cm Total DLP DATA REPOSITORY: All CT scans at this facility are submitted to the National Radiology Data Registry (NRDR) Dose Index Registry (DIR) with the [employer] (ACR). RADIATION OPTIMIZATION: All CT scans at this facility use at least one of these dose optimization techniques: automated exposure control; mA and/or kV adjustment per patient size (includes targeted exams where dose is matched to clinical indication); or iterative reconstruction.
[2025-06-27] MEDS: Barium Sulfate 2% W/V-Berry Smoothie 450 ML BTL PO ×2 (09:03→09:04)
[2025-06-27] MEDS: Omnipaque 350 MG/ML 500 ML BTL-Imaging package IJ (11:00)
[2025-06-27] MEDS: Normal Saline - Diluent 50 ML VIAL IJ (11:01)
== END 2025-06-27 02:01 ==
LOC: DI 01:42
PROVIDERS: PCP Family Medicine; Visit Provider Nurse Practitioner Family
DX: C25.2 Malignant neoplasm of tail of pancreas (principal); C79.19 Secondary malignant neoplasm of other urinary organs; N20.0 Calculus of kidney
CPT/HCPCS: 74177; 71260

== ENCOUNTER 2025-07-05 09:18 | Outpatient (RCR) | payer MEDICARE, SELFPAY ==
[2025-07-05 15:43] VITALS: BP 153/93; PULSE 77; RESP 16; TEMP 36.8; O2SAT 99
== END 2025-07-27 23:59 | disposition home or self-care (01) ==
LOC: INF 09:18
PROVIDERS: PCP Family Medicine; Visit Provider Internal Medicine Hematology & Oncology
DX: C79.9 Secondary malignant neoplasm of unspecified site (principal); C25.9 Malignant neoplasm of pancreas, unspecified; Z45.2 Encounter for adjustment and management of vascular access device
CPT/HCPCS: 96523

== ENCOUNTER 2025-07-19 00:13 | Outpatient (RCR) | payer MEDICARE, SELFPAY ==
[2025-06-27] MEDS: Normal Saline Flush 10 ML SYR IVP (08:58)
[2025-07-03] MEDS: Normal Saline Flush 10 ML SYR IVP (11:02)
[2025-07-03 11:07] LABS: Abs Immature Grans 0.03 10^3/uL (0.0-0.06); HCT 35.5 % (40.0-50.0); HGB 12.4 g/dL (13.5-17.5); Immature Grans % 0.5 %; MCH 33.4 pg (27.0-33.0); MCHC 34.9 % (32.0-36.0); MCV 96 fL (80-95); MPV 10.3 fL (8.0-11.0); Platelet Count 166 10^3/uL (130-400); RBC 3.71 10^6/uL (4.36-5.78); RDW 16.0 % (11.8-14.1); RDW-SD 56.4 fL; WBC 5.90 10^3/uL (4.4-10.8)
[2025-07-03 11:28] LABS: ALT 41 U/L (16-63); AST 26 U/L (15-37); Albumin 3.1 g/dL (3.4-5.0); Alkaline Phosphatase 117 U/L (46-116); Anion Gap 5.5 mmol/L (3-11); BUN 18 mg/dL (7-18); Bilirubin, Total 0.4 mg/dL (0.2-1.0); CO2 27.5 mmol/L (21.0-32.0); Calcium 8.6 mg/dL (8.5-10.1); Chloride 104 mmol/L (98-107); Estimated GFR 100.37 (mL/min/1.73m2); Glucose 114 mg/dL (74-106); Potassium 4.1 mmol/L (3.5-5.1); Sodium 137 mmol/L (136-145); Total Protein 6.5 g/dL (6.4-8.2)
[2025-07-04 13:54] LABS: CA 19-9 19113 U/mL (<35)
[2025-07-17 08:58] LABS: Abs Immature Grans 0.01 10^3/uL (0.0-0.06); HCT 36.3 % (40.0-50.0); HGB 12.4 g/dL (13.5-17.5); Immature Grans % 0.2 %; MCH 33.7 pg (27.0-33.0); MCHC 34.2 % (32.0-36.0); MCV 99 fL (80-95); MPV 10.4 fL (8.0-11.0); Platelet Count 140 10^3/uL (130-400); RBC 3.68 10^6/uL (4.36-5.78); RDW 16.2 % (11.8-14.1); RDW-SD 58.6 fL; WBC 4.67 10^3/uL (4.4-10.8)
[2025-07-17] MEDS: Normal Saline Flush 10 ML SYR IVP (09:04)
[2025-07-17 09:17] LABS: ALT 44 U/L (16-63); AST 30 U/L (15-37); Albumin 3.3 g/dL (3.4-5.0); Alkaline Phosphatase 109 U/L (46-116); Anion Gap 9.1 mmol/L (3-11); BUN 15 mg/dL (7-18); Bilirubin, Total 0.4 mg/dL (0.2-1.0); CO2 26.9 mmol/L (21.0-32.0); Calcium 9.0 mg/dL (8.5-10.1); Chloride 104 mmol/L (98-107); Estimated GFR 100.37 (mL/min/1.73m2); Glucose 118 mg/dL (74-106); Potassium 4.2 mmol/L (3.5-5.1); Sodium 140 mmol/L (136-145); Total Protein 6.6 g/dL (6.4-8.2)
[2025-07-19] MEDS: Normal Saline Flush 10 ML SYR IVP (12:20)
[2025-07-19 17:31] VITALS: BP 136/73; PULSE 73; RESP 16; TEMP 37; O2SAT 98
[2025-07-21 20:26] LABS: CA 19-9 13944 U/mL (<35)
== END 2025-07-27 23:59 | disposition home or self-care (01) ==
LOC: INF 00:13
PROVIDERS: Nurse Practitioner Family; PCP Family Medicine; Visit Provider Internal Medicine Hematology & Oncology
DX: C79.9 Secondary malignant neoplasm of unspecified site (principal); C25.9 Malignant neoplasm of pancreas, unspecified; Z45.2 Encounter for adjustment and management of vascular access device
CPT/HCPCS: 36591; 80053; 96523; 85025; 86301

== ENCOUNTER 2025-08-25 03:33 | Outpatient (CLI) | payer MEDICARE, SELFPAY ==
[2025-08-25] MEDS: Barium Sulfate 2% W/V-Berry Smoothie 450 ML BTL PO ×2 (12:30→12:31)
--- NOTE | 2025-08-25 14:30 | DI.CT_ITS ---
Exam(s) CT CHEST/ABD/PEL W EXAM: CT CHEST/ABD/PEL W CLINICAL HISTORY: METS FROM PANCREATIC CANCER C79.9 C25.9 STAGE IV RESTAGING. TECHNIQUE: Imaging Protocol: Axial computed tomography images with coronal and sagittal reformatted images were created and reviewed. Computer aided detection (CAD) was utilized. CONTRAST MATERIAL: Intravenous: Omnipaque 350 Contrast volume:100 ml Oral: yes / COMPARISON: CT CT CHEST/ABD/PEL W from 03/26/[address] CHEST/ABD/PEL W from 06/27/2025 FINDINGS: CHEST: Pulmonary parenchyma: No consolidation. No dominant measurable mass. Two small fissure related nodules. Stable tiny nodule left upper lobe. Tracheobronchial tree: No bronchiectasis. No mucous plugging.No bronchial wall thickening. Pleura: No effusion or pneumothorax. Mediastinum: Within normal limits. Pulmonary arteries: Significant interval improvement of previously noted right lower lobe pulmonary emboli there is a single medial basilar partially occlusive thrombus that remains present. No new emboli. Cardiac: Normal heart size no pericardial effusion. Thoracic aorta measures 4 cm in the ascending portion, stable. Bones: Unremarkable for age. No lytic or blastic lesions. No compression fractures. Soft tissues: Port over right pectoral muscle with tip in right atrium. ABDOMEN and PELVIS: Liver: Normal density. Cysts are again noted in the right lobe. There are is again noted to be dilatation of the ducts in the left lobe and proximal ill- defined mass. This is not is visible as on the previous examinations. Gallbladder and biliary tract: Cholelithiasis again noted. No evidence of wall thickening. No biliary dilatation. Pancreas: Decreased prominence of previously noted mass in the body of the pancreas. The tail is atrophic. There is now improvement of the previously noted narrowing of the splenic artery and vein with improvement in the amount of thrombus in the splenic vein with only a small amount of thrombus visible currently. Spleen: No focal lesions. Normal size. See above. Kidneys: Normal size, contour and axis. Nonobstructing stone again noted at the lower pole of the left kidney. Tiny stones are noted at the lower pole right kidney. No obstructive uropathy. No suspicious masses seen. Adrenal glands: No masses seen. Aorta: Abdominal portion non-dilated. Lymph nodes: Within normal limits. Soft tissues: Unremarkable. Bladder: Unremarkable. Bowel: No obstruction or bowel wall thickening. Peritoneal cavity: No ascites. No focal collection. No mesenteric inflammatory response. No free air. Bones: Unremarkable for age. Reproductive organs: Unremarkable for age. IMPRESSION: Significant improvement in pulmonary emboli. Small residual embolus is noted in the medial right lower lobe branch. No suspicious pulmonary nodules or adenopathy. Interval decrease in size of pancreatic mass. Improvement in vascular encasement, now mild. The vessels appear patent with the exception of a small amount of thrombus in the splenic vein. Decreased size of previously noted left metastatic lesion in the left lobe of the liver. RADIATION DOSE DELIVERED: Total DLP DATA REPOSITORY: All CT scans at this facility are submitted to the National Radiology Data Registry (NRDR) Dose Index Registry (DIR) with the [employer] (ACR). RADIATION OPTIMIZATION: All CT scans at this facility use at least one of these dose optimization techniques: automated exposure control; mA and/or kV adjustment per patient size (includes targeted exams where dose is matched to clinical indication); or iterative reconstruction.
[2025-08-25] MEDS: Omnipaque 350 MG/ML 100 ML BTL IJ (14:42)
[2025-08-25] MEDS: Normal Saline - Diluent 50 ML VIAL IJ (14:42)
[2025-08-25] MEDS: Normal Saline Flush 10 ML SYR IVP (14:43)
== END 2025-08-25 03:53 ==
LOC: DI 03:33
PROVIDERS: PCP Family Medicine; Visit Provider Nurse Practitioner Family
DX: C25.1 Malignant neoplasm of body of pancreas (principal)
CPT/HCPCS: 74177; 71260; J3490

== ENCOUNTER 2025-08-25 03:44 | Outpatient (RCR) | payer MEDICARE, SELFPAY ==
[2025-07-31] MEDS: Normal Saline Flush 10 ML SYR IVP (08:00)
[2025-07-31 08:39] LABS: Abs Immature Grans 0.01 10^3/uL (0.0-0.06); HCT 35.1 % (40.0-50.0); HGB 12.1 g/dL (13.5-17.5); Immature Grans % 0.2 %; MCH 34.6 pg (27.0-33.0); MCHC 34.5 % (32.0-36.0); MCV 100 fL (80-95); MPV 10.2 fL (8.0-11.0); Platelet Count 132 10^3/uL (130-400); RBC 3.50 10^6/uL (4.36-5.78); RDW 15.3 % (11.8-14.1); RDW-SD 56.6 fL; WBC 4.76 10^3/uL (4.4-10.8)
[2025-07-31 09:00] LABS: ALT 39 U/L (16-63); AST 25 U/L (15-37); Albumin 3.2 g/dL (3.4-5.0); Alkaline Phosphatase 103 U/L (46-116); Anion Gap 6.4 mmol/L (3-11); BUN 16 mg/dL (7-18); Bilirubin, Total 0.4 mg/dL (0.2-1.0); CO2 26.6 mmol/L (21.0-32.0); Calcium 8.5 mg/dL (8.5-10.1); Chloride 106 mmol/L (98-107); Estimated GFR 73.12 (mL/min/1.73m2); Glucose 150 mg/dL (74-106); Potassium 3.7 mmol/L (3.5-5.1); Sodium 139 mmol/L (136-145); Total Protein 6.4 g/dL (6.4-8.2)
[2025-08-01 12:10] LABS: CA 19-9 9569 U/mL (<35)
[2025-08-02 12:30] VITALS: BP 128/79; PULSE 82; RESP 18; TEMP 36.2; O2SAT 99
[2025-08-14 08:43] LABS: Abs Immature Grans 0.02 10^3/uL (0.0-0.06); HCT 36.8 % (40.0-50.0); HGB 12.8 g/dL (13.5-17.5); Immature Grans % 0.4 %; MCH 35.2 pg (27.0-33.0); MCHC 34.8 % (32.0-36.0); MCV 101 fL (80-95); MPV 10.4 fL (8.0-11.0); Platelet Count 126 10^3/uL (130-400); RBC 3.64 10^6/uL (4.36-5.78); RDW 14.4 % (11.8-14.1); RDW-SD 54.4 fL; WBC 5.10 10^3/uL (4.4-10.8)
[2025-08-14 09:06] LABS: ALT 41 U/L (16-63); AST 26 U/L (15-37); Albumin 3.2 g/dL (3.4-5.0); Alkaline Phosphatase 105 U/L (46-116); Anion Gap 7.4 mmol/L (3-11); BUN 17 mg/dL (7-18); Bilirubin, Total 0.4 mg/dL (0.2-1.0); CO2 27.6 mmol/L (21.0-32.0); Calcium 8.6 mg/dL (8.5-10.1); Chloride 104 mmol/L (98-107); Estimated GFR 96.40 (mL/min/1.73m2); Glucose 105 mg/dL (74-106); Potassium 4.0 mmol/L (3.5-5.1); Sodium 139 mmol/L (136-145); Total Protein 6.7 g/dL (6.4-8.2)
[2025-08-14] MEDS: Normal Saline Flush 10 ML SYR IVP (14:42)
[2025-08-14 19:42] LABS: CA 19-9 6364 U/mL (<35)
[2025-08-16 14:10] VITALS: BP 128/79; PULSE 82; RESP 18; TEMP 36.2; O2SAT 99
[2025-08-16] MEDS: Normal Saline Flush 10 ML SYR IVP (14:14)
[2025-08-25] MEDS: Normal Saline Flush 10 ML SYR IVP (12:19)
[2025-08-25 12:34] LABS: Abs Immature Grans 0.01 10^3/uL (0.0-0.06); HCT 37.4 % (40.0-50.0); HGB 12.9 g/dL (13.5-17.5); Immature Grans % 0.3 %; MCH 34.6 pg (27.0-33.0); MCHC 34.5 % (32.0-36.0); MCV 100 fL (80-95); MPV 10.4 fL (8.0-11.0); Platelet Count 123 10^3/uL (130-400); RBC 3.73 10^6/uL (4.36-5.78); RDW 13.7 % (11.8-14.1); RDW-SD 50.3 fL; WBC 3.88 10^3/uL (4.4-10.8)
[2025-08-25 13:28] LABS: ALT 42 U/L (16-63); AST 32 U/L (15-37); Albumin 3.4 g/dL (3.4-5.0); Alkaline Phosphatase 108 U/L (46-116); Anion Gap 7.6 mmol/L (3-11); BUN 17 mg/dL (7-18); Bilirubin, Total 0.3 mg/dL (0.2-1.0); CO2 26.4 mmol/L (21.0-32.0); Calcium 8.5 mg/dL (8.5-10.1); Chloride 104 mmol/L (98-107); Estimated GFR 100.37 (mL/min/1.73m2); Glucose 87 mg/dL (74-106); Potassium 3.9 mmol/L (3.5-5.1); Sodium 138 mmol/L (136-145); Total Protein 6.9 g/dL (6.4-8.2)
[2025-08-26 07:54] LABS: CA 19-9 5329 U/mL (<35)
== END 2025-08-26 23:59 | disposition home or self-care (01) ==
LOC: INF 03:44
PROVIDERS: Nurse Practitioner Family; PCP Family Medicine; Visit Provider Internal Medicine Hematology & Oncology
DX: C25.9 Malignant neoplasm of pancreas, unspecified (principal); C79.9 Secondary malignant neoplasm of unspecified site; Z45.2 Encounter for adjustment and management of vascular access device
CPT/HCPCS: 36591; 80053; 85025; 86301

== ENCOUNTER 2025-09-25 00:05 | Outpatient (RCR) | payer MEDICARE, SELFPAY ==
[2025-09-10 10:20] LABS: Abs Immature Grans 0.01 10^3/uL (0.0-0.06); HCT 38.4 % (40.0-50.0); HGB 13.3 g/dL (13.5-17.5); Immature Grans % 0.2 %; MCH 35.5 pg (27.0-33.0); MCHC 34.6 % (32.0-36.0); MCV 102 fL (80-95); MPV 10.1 fL (8.0-11.0); Platelet Count 106 10^3/uL (130-400); RBC 3.75 10^6/uL (4.36-5.78); RDW 13.7 % (11.8-14.1); RDW-SD 51.6 fL; WBC 4.11 10^3/uL (4.4-10.8)
[2025-09-10 10:44] LABS: ALT 46 U/L (16-63); AST 31 U/L (15-37); Albumin 3.3 g/dL (3.4-5.0); Alkaline Phosphatase 99 U/L (46-116); Anion Gap 11.6 mmol/L (3-11); BUN 19 mg/dL (7-18); Bilirubin, Total 0.5 mg/dL (0.2-1.0); CO2 23.4 mmol/L (21.0-32.0); Calcium 8.4 mg/dL (8.5-10.1); Chloride 105 mmol/L (98-107); Glucose 112 mg/dL (74-106); Potassium 4.1 mmol/L (3.5-5.1); Sodium 140 mmol/L (136-145); Total Protein 6.7 g/dL (6.4-8.2)
[2025-09-10 20:25] LABS: CA 19-9 2701 U/mL (<35)
[2025-09-25] MEDS: Normal Saline Flush 10 ML SYR IVP (09:23)
[2025-09-25 09:29] LABS: Abs Immature Grans 0.01 10^3/uL (0.0-0.06); HCT 35.4 % (40.0-50.0); HGB 12.4 g/dL (13.5-17.5); Immature Grans % 0.3 %; MCH 35.5 pg (27.0-33.0); MCHC 35.0 % (32.0-36.0); MCV 101 fL (80-95); MPV 10.3 fL (8.0-11.0); Platelet Count 114 10^3/uL (130-400); RBC 3.49 10^6/uL (4.36-5.78); RDW 13.2 % (11.8-14.1); RDW-SD 49.5 fL; WBC 3.70 10^3/uL (4.4-10.8)
[2025-09-25 09:48] LABS: ALT 47 U/L (16-63); AST 31 U/L (15-37); Albumin 3.1 g/dL (3.4-5.0); Alkaline Phosphatase 96 U/L (46-116); Anion Gap 6.4 mmol/L (3-11); BUN 17 mg/dL (7-18); Bilirubin, Total 0.3 mg/dL (0.2-1.0); CO2 26.6 mmol/L (21.0-32.0); Calcium 8.5 mg/dL (8.5-10.1); Chloride 106 mmol/L (98-107); Glucose 75 mg/dL (74-106); Potassium 4.0 mmol/L (3.5-5.1); Sodium 139 mmol/L (136-145); Total Protein 6.6 g/dL (6.4-8.2)
[2025-09-26 11:37] LABS: CA 19-9 1735 U/mL (<35)
== END 2025-09-26 23:59 | disposition home or self-care (01) ==
LOC: INF 00:05
PROVIDERS: Nurse Practitioner Family; PCP Family Medicine; Visit Provider Internal Medicine Hematology & Oncology
DX: C25.9 Malignant neoplasm of pancreas, unspecified (principal); C79.9 Secondary malignant neoplasm of unspecified site; Z45.2 Encounter for adjustment and management of vascular access device
CPT/HCPCS: 36591; 80053; 85025; 86301

== ENCOUNTER 2025-09-27 00:25 | Outpatient (RCR) | payer MEDICARE, SELFPAY ==
[2025-08-30] MEDS: Normal Saline Flush 10 ML SYR IVP (13:25)
[2025-09-27 14:10] VITALS: BP 119/86; PULSE 73; RESP 16; TEMP 36.8; O2SAT 98
== END 2025-09-27 23:59 | disposition home or self-care (01) ==
LOC: INF 00:25
PROVIDERS: PCP Family Medicine; Visit Provider Internal Medicine Hematology & Oncology
DX: C79.9 Secondary malignant neoplasm of unspecified site (principal); C25.9 Malignant neoplasm of pancreas, unspecified; Z45.2 Encounter for adjustment and management of vascular access device
CPT/HCPCS: 96523

== ENCOUNTER 2025-10-11 00:57 | Outpatient (RCR) | payer MEDICARE, SELFPAY ==
[2025-10-11 12:03] VITALS: BP 124/82; PULSE 74; RESP 16; TEMP 36.4; O2SAT 96
[2025-10-11] MEDS: Normal Saline Flush 10 ML SYR IVP (12:21)
== END 2025-10-26 23:59 | disposition home or self-care (01) ==
LOC: INF 00:57
PROVIDERS: PCP Family Medicine; Visit Provider Internal Medicine Hematology & Oncology
DX: Z45.2 Encounter for adjustment and management of vascular access device (principal)
CPT/HCPCS: 96523

== ENCOUNTER 2025-10-17 00:11 | Outpatient (RCR) | payer MEDICARE, SELFPAY ==
[2025-10-08 10:57] LABS: Abs Immature Grans 0.01 10^3/uL (0.0-0.06); HCT 36.5 % (40.0-50.0); HGB 12.7 g/dL (13.5-17.5); MCH 34.8 pg (27.0-33.0); MCHC 34.8 % (32.0-36.0); MCV 100 fL (80-95); MPV 10.4 fL (8.0-11.0); Platelet Count 105 10^3/uL (130-400); RBC 3.65 10^6/uL (4.36-5.78); RDW 13.7 % (11.8-14.1); RDW-SD 50.1 fL; WBC 4.11 10^3/uL (4.4-10.8)
[2025-10-08] MEDS: Normal Saline Flush 10 ML SYR IVP (11:12)
[2025-10-08 11:18] LABS: Immature Grans % 0.0 %; RBC Morphology Normal
[2025-10-08 11:43] LABS: ALT 40 U/L (10-49); AST 39 U/L (<34); Albumin 3.9 g/dL (3.4-5.0); Alkaline Phosphatase 105 U/L (46-116); Anion Gap 8.6 mmol/L (3-11); BUN 12 mg/dL (9-23); Bilirubin, Total 0.50 mg/dL (0.2-1.2); CO2 24.4 mmol/L (20.0-31.0); Calcium 8.6 mg/dL (8.3-10.6); Chloride 108 mmol/L (98-107); Glucose 96 mg/dL (74-106); Potassium 3.9 mmol/L (3.5-5.1); Sodium 141 mmol/L (136-145); Total Protein 6.8 g/dL (5.7-8.2)
[2025-10-08 20:31] LABS: CA 19-9 1261 U/mL (<35)
[2025-10-17] MEDS: Normal Saline Flush 10 ML SYR IVP (11:24)
== END 2025-10-26 23:59 | disposition home or self-care (01) ==
LOC: INF 00:11
PROVIDERS: Nurse Practitioner Family; PCP Family Medicine; Visit Provider Internal Medicine Hematology & Oncology
DX: C25.9 Malignant neoplasm of pancreas, unspecified (principal); C79.9 Secondary malignant neoplasm of unspecified site; Z45.2 Encounter for adjustment and management of vascular access device
CPT/HCPCS: 36591; 80053; 96523; 85025; 86301

== ENCOUNTER → 2025-10-17 02:40 | Outpatient (CLI) | payer MEDICARE, SELFPAY ==
--- NOTE | 2025-10-17 | DI.CT_ITS ---
Exam(s) CT CHEST/ABD/PEL W EXAM: CT CHEST/ABD/PEL W CLINICAL HISTORY: C25.9,C78.7 Eval treatment response Stage IV pancreatic CA, liver. TECHNIQUE: Imaging Protocol: Axial computed tomography images with coronal and sagittal reformatted images were created and reviewed. Computer aided detection (CAD) was utilized. CONTRAST MATERIAL: Intravenous: Omnipaque 350 Contrast volume:100 ml Oral: yes COMPARISON: CT CT CHEST/ABD/PEL W from 03/26/[address] CHEST/ABD/PEL W from 06/27/[address] CHEST/ABD/PEL W from 08/25/2025 FINDINGS: CHEST: Pulmonary parenchyma: No consolidation. No dominant measurable mass. Stable tiny nodule lateral left upper lobe. Stable fissure related nodules bilaterally. No new nodules. Tracheobronchial tree: No bronchiectasis. No mucous plugging.No bronchial wall thickening. Pleura: No effusion or pneumothorax. Mediastinum: Within normal limits. Pulmonary arteries: No visible emboli. Cardiovascular: The heart size is normal. No pericardial effusion. Ascending thoracic aorta is stable at 4 cm. Bones: Unremarkable for age. No lytic or blastic lesions. No compression fractures. Soft tissues: Port over right pectoral muscle. ABDOMEN and PELVIS: Liver: Normal density. The previously noted ill-defined mass in the left lower lobe is not discretely visible. There is persistent dilatation of the bile ducts in the left lobe. There are stable cysts. Gallbladder : Cholelithiasis again noted. No wall thickening. Pancreas: The tail of the pancreas is atrophic. Stable appearance of the body of the pancreas with nodular area and some adjacent abnormal soft tissue densities. The splenic vein, portal vein and superior mesenteric veins are patent. Mild narrowing at the proximal splenic vein appears unchanged. Spleen: Normal. Kidneys: Normal size, contour and axis. No radiodense stones. The previously noted stone at the lower pole of the left kidney is all no longer seen. No obstructive uropathy. No suspicious masses seen. Adrenal glands: No masses seen. Aorta: Abdominal portion non-dilated. Lymph nodes: Within normal limits. Soft tissues: Unremarkable. Bladder: Unremarkable. Bowel: No obstruction or bowel wall thickening. The appendix is normal. Moderate quantity of stool. Peritoneal cavity: No ascites. No focal collection. No mesenteric inflammatory response. No free air. Bones: Unremarkable for age. Reproductive organs: Unremarkable for age. IMPRESSION: Stable small pulmonary nodules. No evidence of adenopathy. Mass previously noted in the left lobe of the liver is not discretely visible. Left-sided ductal dilatation remains present. Decreased visibility of ill-defined pancreatic mass in the body No new abnormalities.. RADIATION DOSE DELIVERED: 774.03mGy.cm Total DLP DATA REPOSITORY: All CT scans at this facility are submitted to the National Radiology Data Registry (NRDR) Dose Index Registry (DIR) with the [employer] (ACR). RADIATION OPTIMIZATION: All CT scans at this facility use at least one of these dose optimization techniques: automated exposure control; mA and/or kV adjustment per patient size (includes targeted exams where dose is matched to clinical indication); or iterative reconstruction.
[2025-10-17] MEDS: Barium Sulfate 2% W/V-Berry Smoothie 450 ML BTL PO (11:20)
[2025-10-17] MEDS: Barium Sulfate 2% W/V-Creamy Vanilla Smoothie 450 ML BTL PO (11:21)
[2025-10-17] MEDS: Omnipaque 350 MG/ML 500 ML BTL-Imaging package IJ (11:21)
[2025-10-17] MEDS: Normal Saline Flush 10 ML SYR IVP (11:22)
[2025-10-17] MEDS: Normal Saline - Diluent 50 ML VIAL IJ (11:22)
== END ==
LOC: DI 02:40
PROVIDERS: PCP Family Medicine; Visit Provider Nurse Practitioner Family
DX: C25.9 Malignant neoplasm of pancreas, unspecified (principal); C78.7 Secondary malignant neoplasm of liver and intrahepatic bile duct
CPT/HCPCS: 74177; 71260

== ENCOUNTER 2025-11-26 02:13 | Outpatient (RCR) | payer MEDICARE, SELFPAY ==
[2025-11-06 09:29] LABS: Abs Immature Grans 0.04 10^3/uL (0.0-0.06); HCT 38.8 % (40.0-50.0); HGB 13.1 g/dL (13.5-17.5); Immature Grans % 0.6 %; MCH 34.0 pg (27.0-33.0); MCHC 33.8 % (32.0-36.0); MCV 101 fL (80-95); MPV 10.8 fL (8.0-11.0); Platelet Count 122 10^3/uL (130-400); RBC 3.85 10^6/uL (4.36-5.78); RDW 12.6 % (11.8-14.1); RDW-SD 47.1 fL; WBC 6.47 10^3/uL (4.4-10.8)
[2025-11-06 09:45] LABS: ALT 38 U/L (10-49); AST 35 U/L (<34); Albumin 3.8 g/dL (3.2-5.0); Alkaline Phosphatase 104 U/L (46-116); Anion Gap 9 mmol/L (3-11); BUN 17 mg/dL (9-23); Bilirubin, Total 0.5 mg/dL (0.2-1.2); CO2 24.0 mmol/L (20.0-31.0); Calcium 8.8 mg/dL (8.3-10.6); Chloride 107 mmol/L (98-107); Glucose 98 mg/dL (74-106); Potassium 4.0 mmol/L (3.5-5.1); Sodium 140 mmol/L (136-145); Total Protein 7.0 g/dL (5.7-8.2)
[2025-11-06] MEDS: Normal Saline Flush 10 ML SYR IVP (11:26)
[2025-11-07 09:36] LABS: CA 19-9 311 U/mL (<35)
[2025-11-08] MEDS: Normal Saline Flush 10 ML SYR IVP (12:13)
[2025-11-26] MEDS: Normal Saline Flush 10 ML SYR IVP (09:15)
[2025-11-26 09:22] LABS: Abs Immature Grans 0.00 10^3/uL (0.0-0.06); HCT 39.2 % (40.0-50.0); HGB 13.3 g/dL (13.5-17.5); Immature Grans % 0.0 %; MCH 33.5 pg (27.0-33.0); MCHC 33.9 % (32.0-36.0); MCV 99 fL (80-95); MPV 10.3 fL (8.0-11.0); Platelet Count 152 10^3/uL (130-400); RBC 3.97 10^6/uL (4.36-5.78); RDW 12.7 % (11.8-14.1); RDW-SD 46.4 fL; WBC 3.30 10^3/uL (4.4-10.8)
[2025-11-26 10:05] LABS: ALT 38 U/L (10-49); AST 34 U/L (<34); Albumin 4.1 g/dL (3.2-5.0); Alkaline Phosphatase 93 U/L (46-116); Anion Gap 7.4 mmol/L (3-11); BUN 19 mg/dL (9-23); Bilirubin, Total 0.7 mg/dL (0.2-1.2); CO2 25.6 mmol/L (20.0-31.0); Calcium 8.9 mg/dL (8.3-10.6); Chloride 107 mmol/L (98-107); Glucose 84 mg/dL (74-106); Potassium 4.0 mmol/L (3.5-5.1); Sodium 140 mmol/L (136-145); Total Protein 7.1 g/dL (5.7-8.2); Vitamin B12 439 pg/mL (211-911)
[2025-11-26 18:43] LABS: CA 19-9 176 U/mL (<35)
== END 2025-11-26 23:59 | disposition home or self-care (01) ==
LOC: INF 02:13
PROVIDERS: Nurse Practitioner Family; PCP Family Medicine; Visit Provider Internal Medicine Hematology & Oncology
DX: C25.9 Malignant neoplasm of pancreas, unspecified (principal); C79.9 Secondary malignant neoplasm of unspecified site; Z45.2 Encounter for adjustment and management of vascular access device
CPT/HCPCS: 36591; 80053; 96523; 82607; 85025; 86301